=== PATIENT | female | born 2000 | race Two or more races ===

== ENCOUNTER 2024-12-05 04:39 | Emergency (ER) | payer MEDICAID, SELFPAY ==
[2024-12-05 04:40] VITALS: BMI 25.0
[2024-12-05 04:45] VITALS: BP 100/67; PULSE 64; RESP 19; TEMP 37.7; O2SAT 95
--- NOTE | 2024-12-05 04:51 | XR_ITS ---
Examination: PA lateral chest 2 views Technique: Upright PA lateral chest 2 views Exam date and time: December 05, 2024 0502 hrs. Indications: Coughing fever difficulty breathing beginning 3 days ago. Findings: Left perihilar left basilar significant pneumonia 5 mm pulmonary nodule right lower lung zone. Normal heart size Impression: Significant left lung pneumonia Recommend AP lordotic chest follow-up to confirm 5 mm pulmonary nodule right lower lung zone
--- NOTE | 2024-12-05 04:52 | PD.EDRME ---
Rapid Medical Screening Exam RME Arrival date/time: 12/05/24 04:39 23-year-old female presents emergency department complaining of cough, fever, and difficulty breathing for 3 days. Chief Complaint: Flu Like Symptoms Time Seen by Provider: 12/05/24 04:47 Vital signs: Vital Signs Temperature 99.8 F 12/05/24 04:45 Pulse Rate 64 12/05/24 04:45 Respiratory Rate 19 12/05/24 04:45 Blood Pressure 100/67 12/05/24 04:45 Pulse Oximetry (%) 95 12/05/24 04:45 Vital signs reviewed by provider: Yes
[2024-12-05] MEDS: predniSONE 20 MG TABLET 40 MG PO (04:56)
[2024-12-05 05:08] VITALS: PULSE 97
[2024-12-05] MEDS: ALBUTEROL RT 2.5 MG/0.5 ML NEBU 5 MG INH (05:08)
[2024-12-05] MEDS: SODIUM CHLORIDE RT SOL 0.9% 3 ML NEBU INH (05:08)
[2024-12-05] MEDS: IPRATROPIUM RT 0.5 MG/ 2.5 ML NEBU INH (05:08)
[2024-12-05 05:12] VITALS: PULSE 102; RESP 20; O2SAT 99
--- NOTE | 2024-12-05 06:22 | EDNOTE_ITS ---
Upper Respiratory Inf. RME/HPI General Chief Complaint: Flu Like Symptoms Stated Complaint: COUGH/ FEVER X 3DAYS Time Seen by Provider: 12/05/24 04:47 Source: patient Arrival date/time: 12/05/24 04:39 23-year-old female with no known medical history presents to the emergency room with a chief complaint of cough, fever, shortness of breath x 3 days Mode of arrival: ambulatory Limitations: no limitations RME / HPI RME / HPI Narrative: 12/05/24 04:39 23-year-old female presents emergency department complaining of cough, fever, and difficulty breathing for 3 days. Related Data Previous Rx's ?Medication ?Instructions ?Recorded amoxicillin 875 mg-potassium 1 tab PO BID 7 days #14 t abs 12/05/24 clavulanate 125 mg tablet Allergies Allergy/AdvReac Type Severity Reaction Status Date / Time No Known Allergies Allergy Verified 12/05/24 04:42 Review of Systems Review of Systems Systems Reviewed: All systems reviewed, normal except as documented Constitutional Constitutional: Reports system reviewed and no additional complaints, except as documented, Denies fatigue, Reports fever(s), Denies headache(s), Reports weakness and Reports weight loss Eyes Eyes: Reports system reviewed and no additional complaints, except as documented, Denies blurry vision and Denies change in vision ENT Ears, Nose, Mouth, and Throat: Reports system reviewed and no additional complaints, except as documented, Denies otalgia, Denies headache(s), Denies nasal congestion, Denies throat swelling and Denies vertigo Cardiovascular Cardiovascular: Reports system reviewed and no additional complaints, except as documented, Denies chest pain, Denies dyspnea and Denies dyspnea on exertion Respiratory Respiratory: Reports chest congestion, Reports cough, Denies dyspnea, Denies dyspnea on exertion and Denies wheezing Gastrointestinal Gastrointestinal: Reports system reviewed and no additional complaints, except as documented, Denies abdominal pain, Denies cramping, Denies nausea and Denies vomiting Genitourinary Genitourinary: Reports system reviewed and no additional complaints, except as documented Musculoskeletal Musculoskeletal: Reports system reviewed and no additional complaints, except as documented and Denies back pain Integumentary/Breasts Skin/Breast: Reports system reviewed and no additional complaints, except as documented and Denies wounds Neurologic Neurologic: Reports system reviewed and no additional complaints, except as documented, Denies confusion, Denies headache(s), Denies lack of coordination, Denies vertigo and Reports weakness Psychiatric Psychiatric: Reports system reviewed and no additional complaints, except as documented, Denies anxiety, Denies confusion, Denies depression, Denies paranoia, Denies suicidal ideation and Denies tactile hallucinations Endocrine Endocrine: Reports system reviewed and no additional complaints, except as documented and Denies fatigue Hematologic/Lymphatic Hematologic/Lymphatic: Reports system reviewed and no additional complaints, except as documented and Denies lymphadenopathy Allergic/Immunologic Allergic/Immunologic: Reports system reviewed and no additional complaints, except as documented, Denies throat swelling, Denies urticaria and Denies wheezing Past Medical History Social History SMOKING STATUS: Never smoker ED Exam General Limitations: Present no limitations General appearance: Present alert and in no apparent distress Head Head exam: Present atraumatic Eye Eye exam: Present normal appearance, PERRL and EOMI ENT ENT exam: Present normal exam, normal oropharynx and mucous membranes moist Neck Neck exam: Present normal inspection, full ROM and trachea midline Chest Chest inspection: Present normal inspection and symmetric chest wall rise Respiratory Respiratory exam: Present normal lung sounds bilaterally Cardiovascular Cardiovascular exam: Present regular rate, normal rhythm and normal heart sounds Abdominal Exam Abdominal exam: Present soft and normal bowel sounds Extremities Exam Extremities exam: Present normal inspection and full ROM Back Exam Back exam: Present normal inspection and full ROM Neurological Exam Neurological exam: Present alert, oriented X3 and CN II-XII intact Psychiatric Psychiatric exam: Present normal affect and normal mood Skin Skin exam: Present warm, dry, intact and normal color Course Quality Measures none Orders Category Date Time Status Bedside COVID-19 Antigen Test NOW Care 12/05/24 04:51 Active Bedside Influenza A&B Antigen Test NOW Care 12/05/24 04:51 Completed XR chest 2V Stat Exams 12/05/24 04:51 Completed ALBUTEROL RT 0.5ml [Proventil Rt 0.5ml] Med 12/05/24 04:51 Discontinued 5 mg INH X1 ONE Ipratropium Throckmorton Rt Christie [Atrovent Rt Christie] Med 12/05/24 04:51 Discontinued 0.5 mg INH X1 ONE Sodium Chloride Rt Christie 0.9% [NS Rt Christie 0.9%] Med 12/05/24 04:51 Active 3 ml INH PRN PRN predniSONE Med 12/05/24 04:51 Discontinued 40 mg PO X1 ONE Vital Signs Vital signs: Vital Signs Temperature 99.8 F 12/05/24 04:45 Pulse Rate 64 12/05/24 04:45 Respiratory Rate 19 12/05/24 04:45 Blood Pressure 100/67 12/05/24 04:45 Pulse Oximetry (%) 95 12/05/24 04:45 O2 saturation 95% within normal limits Upper Respiratory Infection MDM Narrative MDM Narrative:: 23-year-old female with no known medical history presents to the emergency room with a chief complaint of cough, fever, shortness of breath x 3 days Patient is hemodynamically stable and in no apparent distress. The patient is afebrile, not tachypneic and not tachycardic. Lung sounds during my reevaluation are clear bilaterally. The patient received a breathing treatment and steroids initially. Chest x-ray was completed and shows left-sided lung pneumonia. Antibiotics are sent to the patient's pharmacy. There was also an incidental finding to the x-ray. There was a 5 mm right sided lower pulmonary nodule that was seen. Radiologist recommends close follow-up. The patient was educated to follow-up with her primary care provider for further management of this right sided lower pulmonary nodule. Patient agreed and states she will make an appointment with her primary doctor Patient was discharged and educated to follow-up with primary care provider in the next 24 to 48 hours and return to the emergency room for any evidence of worsening signs or symptoms Patient data External records reviewed:: [facility] previous records Clinical information provided by:: patient Social determinants that could affect healthcare access:: none Patient has the following chronic illnesses:: No chronic illness How is presenting disease/condition affected by chronic disease/condition?: no chronic disease Evaluation data The following diagnostics were reviewed and interpreted by me:: lab results and radiology exam(s) Lab and/or radiology exams considered but not ordered:: Labs and radiology exams considered and ordered Interpretation Summary: Chest [id number]: Left perihilar left basilar significant pneumonia 5 mm pulmonary nodule right lower lung zone. Normal heart size Impression: Significant left lung pneumonia Recommend AP lordotic chest follow-up to confirm 5 mm pulmonary nodule right lower lung zone Medications / Prescriptions Medications or Prescriptions considered but not ordered:: Medication given Medication administrations:: Medication Administration History Sodium Chloride (Sodium Chloride Rt Christie 0.9% 3 Ml Nebu) 3 ml INH PRN PRN PRN Reason: SOLN Stop: 01/04/25 04:50 Last Admin: 12/05/24 05:08 Dose: 3 ml Documented By: PAR Discontinued Medications Albuterol (Albuterol Rt 2.5 Mg/0.5 Ml Nebu) 5 mg INH X1 ONE Stop: 12/05/24 04:52 Last Admin: 12/05/24 05:08 Dose: 5 mg Documented By: PAR Ipratropium Throckmorton (Ipratropium Rt 0.5 Mg/ 2.5 Ml Nebu) 0.5 mg INH X1 ONE Stop: 12/05/24 04:52 Last Admin: 12/05/24 05:08 Dose: 0.5 mg Documented By: PAR Prednisone (Prednisone 20 Mg Tablet) 40 mg PO X1 ONE Stop: 12/05/24 04:52 Last Admin: 12/05/24 04:56 Dose: 40 mg Documented By: KG Medication given Consultations Consultation(s) initiated? (list below): No Diagnosis Upper Respiratory Differential Diagnosis: upper respiratory infection, viral in fection and other (COVID-19/community-acquired pneumonia) Most likely diagnosis given after review of the tests above:: Community-acquired pneumonia Admission Indicated Admission indicated?: not indicated Admission Request Was there a request for admission?: No Disposition Plan Disposition Plan: Discharge Discharge Attestation Discharge Attestation: The patient and all family members were given an opportunity to ask questions and understood the discharge instructions. Discharge instructions specifically effects, indications for sooner follow up or return to the emergency department, and the expected course of current diagnosis. Patient condition: Stable Discharge Plan Plan Patient Disposition: HOME (Self Care) Disposition Comment: Stable Prescriptions/Referrals Prescriptions/Med Rec: New amoxicillin-pot clavulanate 875-125 mg tablet 1 tab PO BID 7 Days Qty: 14 0RF Referrals: No Primary/Family,Physician [Primary Care Provider] - In 1 week Problem List Clinical Impression: Community acquired pneumonia Patient/Caregiver Discharge Instructions Education Materials: ED Pneumonia (Adult) Additional Instructions: Por favor, consulte con yanez m?dico de cabecera en las pr?ximas 24 a 48 horas. Se realiz? anthony radiograf?a de t?rax y se observa neumon?a en el lado debbie. Se env?an antibi?ticos a yanez farmacia; rec?jalos y t?melos seg?n lo indicado. Tambi?n se encontr? un posible n?dulo pulmonar en el pulm?n inferior derecho. Ser? necesario que le sara anthony nueva radiograf?a. Por favor, consulte con yanez m?dico de cabecera para que le d? un tratamiento adicional a rachel hallazgo incidental. Si hay alguna evidencia de empeoramiento de los signos o s?ntomas, regrese a la dominick de emergencias de inmediato. Print Language: Belarusian Stand Alone Forms: [place] Award Info., Work/School Release, Patient Portal Info Letter PA/FIRST CALENDER WORKER Supervising Physician PA/FIRST CALENDER WORKER Supervising Physician: Dr. Correa
[2024-12-05 08:11] VITALS: PULSE 88; RESP 16; O2SAT 99
== END 2024-12-05 08:13 | disposition home or self-care (01) ==
PROVIDERS: Emergency Provider Emergency Medicine
DX: J18.9 Pneumonia, unspecified organism (principal)
CPT/HCPCS: 71046; 87400; 87811; 94640; 99283; J7512

== ENCOUNTER 2024-12-06 12:23 | Emergency (ER) | payer MEDICAID, SELFPAY ==
[2024-12-06 12:39] VITALS: BP 95/60; PULSE 90; RESP 18; TEMP 37.1; O2SAT 95; BMI 23.9
--- NOTE | 2024-12-06 12:59 | PC.NURSE ---
nax 1 at this time
--- NOTE | 2024-12-06 13:17 | PC.NURSE ---
nax2 at this time
--- NOTE | 2024-12-06 13:58 | EDNOTE_ITS ---
ED SOB =RME/HPI General Chief Complaint: Shortness of Breath/Dyspnea Stated Complaint: ER YESTERDAY FOR COUGH W/DIFFICULTY BREATHING TODA Time Seen by Provider: 12/06/24 12:33 Source: patient Arrival date/time: 12/06/24 12:23 23-year-old female with no known medical history presents to the emergency room with a chief complaint of cough and shortness of breath x 3 days. Patient was seen here yesterday and discharged with a diagnosis of pneumonia. Mode of arrival: ambulatory Limitations: no limitations Related Data Previous Rx's ?Medication ?Instructions ?Recorded amoxicillin 875 mg-potassium 1 tab PO BID 7 days #14 t abs 12/05/24 clavulanate 125 mg tablet Allergies Allergy/AdvReac Type Severity Reaction Status Date / Time No Known Allergies Allergy Verified 12/06/24 12:29 Review of Systems Review of Systems Systems Reviewed: All systems reviewed, normal except as documented Constitutional Constitutional: Reports system reviewed and no additional complaints, except as documented, Denies fatigue, Denies fever(s), Denies headache(s) and Denies weakness Eyes Eyes: Reports system reviewed and no additional complaints, except as documented, Denies blurry vision and Denies change in vision ENT Ears, Nose, Mouth, and Throat: Reports system reviewed and no additional complaints, except as documented, Denies otalgia, Denies headache(s), Denies nasal congestion, Denies throat swelling and Denies vertigo Cardiovascular Cardiovascular: Reports system reviewed and no additional complaints, except as documented, Denies chest pain, Denies dyspnea and Denies dyspnea on exertion Respiratory Respiratory: Reports system reviewed and no additional complaints, except as documented, Denies chest congestion, Reports cough, Denies dyspnea, Denies dyspnea on exertion and Denies wheezing Gastrointestinal Gastrointestinal: Reports system reviewed and no additional complaints, except as documented, Denies abdominal pain, Denies cramping, Denies nausea and Denies vomiting Genitourinary Genitourinary: Reports system reviewed and no additional complaints, except as documented Musculoskeletal Musculoskeletal: Reports system reviewed and no additional complaints, except as documented and Denies back pain Integumentary/Breasts Skin/Breast: Reports system reviewed and no additional complaints, except as documented and Denies wounds Neurologic Neurologic: Reports system reviewed and no additional complaints, except as documented, Denies confusion, Denies headache(s), Denies lack of coordination, Denies vertigo and Denies weakness Psychiatric Psychiatric: Reports system reviewed and no additional complaints, except as documented, Denies anxiety, Denies confusion, Denies depression, Denies paranoia, Denies suicidal ideation and Denies tactile hallucinations Endocrine Endocrine: Reports system reviewed and no additional complaints, except as documented and Denies fatigue Hematologic/Lymphatic Hematologic/Lymphatic: Reports system reviewed and no additional complaints, except as documented and Denies lymphadenopathy Allergic/Immunologic Allergic/Immunologic: Reports system reviewed and no additional complaints, except as documented, Denies throat swelling, Denies urticaria and Denies wheezing Past Medical History Social History SMOKING STATUS: Never smoker ED Exam General Limitations: Present no limitations General appearance: Present alert and in no apparent distress Head Head exam: Present atraumatic Eye Eye exam: Present normal appearance, PERRL and EOMI ENT ENT exam: Present normal exam, normal oropharynx and mucous membranes moist Neck Neck exam: Present normal inspection, full ROM and trachea midline Chest Chest inspection: Present normal inspection and symmetric chest wall rise Respiratory Respiratory exam: Present normal lung sounds bilaterally; Absent respiratory distress, wheezes, stridor, accessory muscle use or prolonged expiratory phase Cardiovascular Cardiovascular exam: Present regular rate, normal rhythm and normal heart sounds Abdominal Exam Abdominal exam: Present soft and normal bowel sounds Extremities Exam Extremities exam: Present normal inspection and full ROM Back Exam Back exam: Present normal inspection and full ROM Neurological Exam Neurological exam: Present alert, oriented X3 and CN II-XII intact Psychiatric Psychiatric exam: Present normal affect and normal mood Skin Skin exam: Present warm, dry, intact and normal color Course Quality Measures none Orders Category Date Time Status Cocci Serology IgM with reflex to IgG [Cocci Serology, Lab 12/06/24 12:53 Received Unk History] Stat cefTRIAXone [Rocephin] 1,000 mg Med 12/06/24 12:52 Discontinued Lidocaine 1% 20 ml [Xylocaine 1% 20 ML] 2.1 ml IM X1 Vital Signs Vital signs: Vital Signs Temperature 98.7 F 12/06/24 12:39 Pulse Rate 90 12/06/24 12:39 Respiratory Rate 18 12/06/24 12:39 Blood Pressure 95/60 12/06/24 12:39 Pulse Oximetry (%) 95 12/06/24 12:39 Oxygen Delivery Method Room Air 12/06/24 12:39 O2 saturation 95% on room air Shortness of Breath / Dyspnea MDM Narrative MDM Narrative:: 23-year-old female with no known medical history presents to the emergency room with a chief complaint of cough and shortness of breath x 3 days. Patient was seen here yesterday and discharged with a diagnosis of pneumonia. Patient was seen here yesterday and prescribed antibiotics for diagnosis of pneumonia. Patient states she is still feeling short of breath and she started taking her antibiotics. Lung sounds were clear bilaterally there is no wheezing and lungs sound better than yesterday. The patient is afebrile not tachycardic not tachypneic and O2 saturation of 95% on room air. The patient is not in any apparent respiratory distress she is able to ambulate and speak in complete sentences. I educated the patient that sometimes it takes antibiotics a couple of days to kick in before her symptoms are all completely gone. Due to her x-ray results from yesterday I ran cocci testing to check for valley fever. I spoke to the patient and told her that the results would not be back today but that she can follow-up with her primary care provider or check her patient portal. Patient was educated to follow-up with primary care provider return to the emergency room for any evidence of worsening signs or symptoms Patient data External records reviewed:: [facility] previous records Clinical information provided by:: patient Social determinants that could affect healthcare access:: none Patient has the following chronic illnesses:: No chronic illness How is presenting disease/condition affected by chronic disease/condition?: no chronic disease Evaluation data The following diagnostics were reviewed and interpreted by me:: lab results and radiology exam(s) Lab and/or radiology exams considered but not ordered:: Labs and radiology exams considered and ordered Interpretation Summary: N/A Medications / Prescriptions Medications or Prescriptions considered but not ordered:: Medication given Medication administrations:: Medication Administration History Discontinued Medications Ceftriaxone Sodium 1,000 mg/ (Lidocaine HCl 2.1 ml) 0 mg IM X1 ONE Stop: 12/06/24 12:53 Medication given Consultations Consultation(s) initiated? (list below): No Diagnosis Shortness of Breath Differential Diagnosis: congestive heart failure, community acquired pneumonia, asthma with exacerbation and pulmonary embolism Most likely diagnosis given after review of the tests above:: Community-acquired pneumonia Admission Indicated Admission indicated?: not indicated Admission Request Was there a request for admission?: No Disposition Plan Disposition Plan: Discharge Discharge Attestation Discharge Attestation: The patient and all family members were given an opportunity to ask questions and understood the discharge instructions. Discharge instructions specifically effects, indications for sooner follow up or return to the emergency department, and the expected course of current diagnosis. Patient condition: Stable Discharge Plan Plan Patient Disposition: Elopement Disposition Comment: Stable Prescriptions/Referrals Prescriptions/Med Rec: No Action amoxicillin-pot clavulanate 875-125 mg tablet 1 tab PO BID 7 Days Qty: 14 0RF Problem List Clinical Impression: Community acquired pneumonia Patient/Caregiver Discharge Instructions Print Language: Ukrainian
[2024-12-07 12:59] LABS: Cocci Serology, IgM Negative (Negative)
[2024-12-08 11:13] LABS: Cocci Serology, IgG Negative (Negative)
== END 2024-12-06 15:41 | disposition left against medical advice (07) ==
LOC: SERX 14:49
PROVIDERS: Nurse Practitioner Family; Emergency Provider Emergency Medicine
DX: J18.9 Pneumonia, unspecified organism (principal)
CPT/HCPCS: 36415; 86331; 86635; 99281

== ENCOUNTER 2024-12-28 22:09 | Emergency (ER) | payer MEDICAID, SELFPAY ==
[2024-12-28 22:11] VITALS: BMI 24.0
[2024-12-28 22:40] VITALS: BP 95/63; PULSE 75; RESP 18; TEMP 36.9; O2SAT 97
[2024-12-28] MEDS: DiphenhydrAMINE 25 MG CAPSULE PO (23:02)
[2024-12-28] MEDS: FAMOTIDINE 20 MG TABLET PO (23:02)
[2024-12-28] MEDS: DEXAMETHASONE SOD PHOS INJ 10 MG/ML VIAL PO (23:02)
--- NOTE | 2024-12-29 03:21 | PD.EDALLER ---
ED Allergic Reaction RME/HPI General Chief complaint: Skin/Abscess/Foreign Body Stated complaint: HIVES Time Seen by Provider: 12/28/24 22:44 Arrival date/time: 12/28/24 22:09 24F with no significant PMH presents to ED with 1 day of generalized itchy rash. Patient denies new meds, foods, hygiene products, SOB, and throat swelling. Limitations: no limitations Related Data Previous Rx's ?Medication ?Instructions ?Recorded prednisone 20 mg tablet 20 mg PO QDAY 4 days #4 tabs 12/29/24 Allergies Allergy/AdvReac Type Severity Reaction Status Date / Time No Known Allergies Allergy Verified 12/06/24 12:29 Review of Systems Review of Systems Systems Reviewed: All systems reviewed, normal except as documented Constitutional Constitutional: Reports system reviewed and no additional complaints, except as documented, Denies fever(s) and Denies headache(s) ENT Ears, Nose, Mouth, and Throat: Denies disequilibrium and Denies headache(s) Cardiovascular Cardiovascular: Reports system reviewed and no additional complaints, except as documented, Denies chest pain and Denies dyspnea Respiratory Respiratory: Reports system reviewed and no additional complaints, except as documented, Denies cough and Denies dyspnea Gastrointestinal Gastrointestinal: Reports system reviewed and no additional complaints, except as documented, Denies abdominal pain, Denies nausea and Denies vomiting Integumentary/Breasts Skin/Breast: Reports as per HPI, Reports pruritus and Reports rash Neurologic Neurologic: Reports system reviewed and no additional complaints, except as documented, Denies confusion, Denies disequilibrium and Denies headache(s) Psychiatric Psychiatric: Denies confusion Past Medical History Social History SMOKING STATUS: Never smoker ED Exam General Limitations: Present no limitations General appearance: Present alert and in no apparent distress Head Head exam: Present atraumatic Eye Eye exam: Present normal appearance, PERRL and EOMI ENT ENT exam: Present normal exam, normal oropharynx and mucous membranes moist Neck Neck exam: Present normal inspection, full ROM and trachea midline Chest Chest inspection: Present normal inspection and symmetric chest wall rise Respiratory Respiratory exam: Present normal lung sounds bilaterally Cardiovascular Cardiovascular exam: Present regular rate, normal rhythm and normal heart sounds Abdominal Exam Abdominal exam: Present soft and normal bowel sounds Extremities Exam Extremities exam: Present normal inspection and full ROM Back Exam Back exam: Present normal inspection and full ROM Neurological Exam Neurological exam: Present alert, oriented X3 and CN II-XII intact Psychiatric Psychiatric exam: Present normal affect and normal mood Skin Skin exam: Present warm, dry, intact, normal color and rash Course Quality Measures none Orders Category Date Time Status Dexamethasone Inj [Decadron Inj] Med 12/28/24 22:44 Discontinued 10 mg PO X1 ONE DiphenhydrAMINE [Benadryl] Med 12/28/24 22:44 Discontinued 25 mg PO X1 ONE Famotidine [Pepcid] Med 12/28/24 22:44 Discontinued 20 mg PO X1 ONE Vital Signs Vital signs: Vital Signs Temperature 98.5 F 12/28/24 22:40 Pulse Rate 75 12/28/24 22:40 Respiratory Rate 18 12/28/24 22:40 Blood Pressure 95/63 12/28/24 22:40 Pulse Oximetry (%) 97 12/28/24 22:40 Oxygen Delivery Method Room Air 12/28/24 22:40 O2 at 97% on RA and WNLs Allergic Reaction MDM Narrative MDM Narrative:: 24F with no significant PMH presents to ED with 1 day of generalized itchy rash. Patient denies new meds, foods, hygiene products, SOB, and throat swelling. Physical exam reveals generalized urticarial rash. Clear oropharynx and lungs. Normal WOB. Patient is afebrile, calm, and alert. Meds relieved symptoms. Patient data External records reviewed:: [facility] previous records Clinical information provided by:: patient Social determinants that could affect healthcare access:: none Patient has the following chronic illnesses:: none How is presenting disease/condition affected by chronic disease/condition?: no chronic disease Evaluation data The following diagnostics were reviewed and interpreted by me:: other (specify) (none) Lab and/or radiology exams considered but not ordered:: not ordered Interpretation Summary: n/a Medications / Prescriptions Medications or Prescriptions considered but not ordered:: ordered Medication administrations:: Medication Administration History Discontinued Medications Dexamethasone Sodium Phosphate (Dexamethasone Sod Phos Inj 10 Mg/Ml Vial) 10 mg PO X1 ONE Stop: 12/28/24 22:45 Last Admin: 12/28/24 23:02 Dose: 10 mg Documented By: Diphenhydramine HCl (Diphenhydramine 25 Mg Capsule) 25 mg PO X1 ONE Stop: 12/28/24 22:45 Last Admin: 12/28/24 23:02 Dose: 25 mg Documented By: Famotidine (Famotidine 20 Mg Tablet) 20 mg PO X1 ONE Stop: 12/28/24 22:45 Last Admin: 12/28/24 23:02 Dose: 20 mg Documented By: above Consultations Consultation(s) initiated? (list below): No Diagnosis Differential Diagnosis allergic reaction: anaphylaxis, allergic reaction, angioedema, contact dermatitis, adverse reaction to drug, viral enanthem and urticaria Most likely diagnosis given after review of the tests above:: allergic reaction Admission Indicated Admission indicated?: not indicated Admission Request Was there a request for admission?: No Disposition Plan Disposition Plan: Discharge Discharge Attestation Discharge Attestation: The patient and all family members were given an opportunity to ask questions and understood the discharge instructions. Discharge instructions specifically effects, indications for sooner follow up or return to the emergency department, and the expected course of current diagnosis. Patient condition: Stable Discharge Plan Plan Patient Disposition: HOME (Self Care) Disposition Comment: Stable Prescriptions/Referrals Prescriptions/Med Rec: New prednisone 20 mg tablet 20 mg PO QDAY 4 Days Qty: 4 0RF Referrals: No Primary/Family,Physician [Primary Care Provider] - In 1 week Problem List Clinical Impression: Allergic reaction Patient/Caregiver Discharge Instructions Education Materials: ED Hives (Adult) Additional Instructions: Please follow-up with PCP within 24-48 hours and return immediately if symptoms worsen. Take OTC antihistamine as needed until symptoms resolve. Finish entire steroid course. Print Language: Yoruba Stand Alone Forms: Patient Portal Info Letter BIANCA/BILL Supervising Physician BIANCA/BILL Supervising Physician: Dr. Elias
== END 2024-12-29 01:07 | disposition home or self-care (01) ==
PROVIDERS: Emergency Provider Emergency Medicine
DX: L50.0 Allergic urticaria (principal)
CPT/HCPCS: 99282; J1100; A9270